=== PATIENT | female | born 1995 | race Two or more races ===

== ENCOUNTER 2018-05-16 02:32 | Observation (INO) | payer MEDICAID, OTHER ==
[~2018-05-16] VITALS: Ht 160 cm; Wt 71.2 kg
[2018-05-16] MEDS ORDERED: FAMOTIDINE (10MG/ML) 2ML VL IV ONE (03:00)
[2018-05-16] MEDS ORDERED: methylPREDNISolone SOD SUCC 125 MG/2 ML VL IV ONE (03:00)
[2018-05-16 03:57] LABS: Basophils # (auto) 0 uL; Basophils % (auto) 0.2 % (0.0-2.0); Eosinophils # (auto) 0.1 uL; Eosinophils % (auto) 0.9 % (0.0-7.0); Hematocrit 42.6 % (36.0-46.0); Hemoglobin 14.2 g/dL (12.2-16.2); Lymphocytes # (auto) 2.1 uL; Lymphocytes % (auto) 21.9 % (10.0-50.0); Mean Corpuscular Hemoglobin 31.7 pg (28.0-32.0); Mean Corpuscular Hgb Conc. 33.4 g/dL (32.0-36.0); Mean Corpuscular Volume 94.9 fL (80.0-100.0); Monocytes # (auto) 0.6 uL; Monocytes % (auto) 6.7 % (0.0-12.0); Neutrophils # (auto) 6.7 uL; Neutrophils % (auto) 70.3 % (37.0-80.0); Platelet Count (auto) 343 10^3/uL (140-450); Red Blood Cells 4.49 10^6/uL (4.0-5.20); Red Cell Distribution Width 13.3 % (11.8-14.3); White Blood Cell 9.5 10^3/uL (4.4-10.8)
[2018-05-16 04:13] LABS: Albumin 3.4 g/dL (3.4-5.0); BUN/Creatinine Ratio 17.6; Potassium 3.4 mmol/L (3.5-5.1)
[2018-05-16 04:16] LABS: Bilirubin, Total 0.3 mg/dL (0.2-1.0); Total Protein 7.2 g/dL (6.4-8.2)
[2018-05-16 05:25] VITALS: BP 110/59
[2018-05-16] MEDS ORDERED: DEXAMETHASONE SOD PHOS 10MG/1ML VIAL INJ IM ONE (05:45)
== END 2018-05-16 06:06 | disposition home or self-care (01) | DRG 385 ==
LOC: ER 02:32 → OVERFLOW 02:33 → ER 06:06
PROVIDERS: ADMIT Anesthesiology; ATTEND Anesthesiology
DX: L23.9 Allergic contact dermatitis, unspecified cause (principal); Z88.8 Allergy status to other drugs, medicaments and biological substances
CPT/HCPCS: 36415; 80053; 85025; 96372; 96374; 96375; 99285; G0378; J1100; J2930; J3490

== ENCOUNTER 2018-06-11 11:12 | Emergency (ER) | payer MEDICAID ==
[~2018-06-11] VITALS: Ht 160 cm; Wt 68.0 kg
[2018-06-11 11:19] VITALS: BP 136/72
== END 2018-06-11 12:45 | disposition home or self-care (01) ==
LOC: ER 11:12
DX: G44.209 Tension-type headache, unspecified, not intractable (principal)
CPT/HCPCS: 70450